=== PATIENT | female | born 1995 | race Caucasian/White ===

== ENCOUNTER 2017-04-05 21:31 | Emergency (ER) | payer BC, OTHER ==
[~2017-04-05 21:31] MED LIST: COLACE 100MG C100 MG PO
== END 2017-04-06 00:26 | disposition left against medical advice (07) ==
LOC: ER1 21:31
DX: Z53.21 Procedure and treatment not carried out due to patient leaving prior to being seen by health care provider (principal)

== ENCOUNTER 2021-02-09 10:38 | Emergency (ER) | payer OTHER ==
[~2021-02-09 10:38] MED LIST changes: +BENTYL 20MG TAB20 MG PO; +NAPROSYN500 MG PO; +PHENERGAN 25 MG25 M1 PO; +PRENATAL VITAM1 EAC3 PO; +TORADOL 10 MG T10 MG PO; +ZOFRAN ODT 4 MG4 MG SL; +ZOFRAN4 MG PO
[2021-02-09 11:00] LABS: HEMOGLOBIN 13.7 gm/dl (12.3-15.3); RED BLOOD COUNT 4.99 M/UL (4.00-5.10); WHITE BLOOD COUNT 8.9 K/UL (4.5-11.0)
[2021-02-09 11:26] LABS: BUN/CREATININE RATIO 16 (0-10)
== END 2021-02-09 16:01 | disposition home or self-care (01) ==
LOC: ER1 10:38
PROVIDERS: Emergency Medicine
DX: N83.202 Unspecified ovarian cyst, left side (principal); Z90.49 Acquired absence of other specified parts of digestive tract
CPT/HCPCS: 80053; 81001; 82150; 83690; 84703; 85025; 96374; 96375; 99284; J2270; J2405; Q9967